=== PATIENT | male | born 1975 ===

== ENCOUNTER 2017-10-21 06:45 | Day surgery (SDC) | payer OTHER ==
[2017-10-21] VITALS (10 sets, daily range): BP systolic 79–152; BP diastolic 36–100
[~2017-10-21] VITALS: Ht 180.3 cm; Wt 112.0 kg
[~2017-10-21 06:45] MED LIST: ceFAZolin 1gm in D5W 55ml IVP ONE; celeBREX 100mg Cap **SURGERY PATIENTS ONLY ORAL ONE; oxyCONTIN 20mg tab ORAL ONE
[2017-10-21] MEDS ORDERED: Kenalog-40 1ml Vial ONE (07:14)
[2017-10-21] MEDS ORDERED: Morphine Sulfate PF 10 ML ONE (07:14)
[2017-10-21] MEDS ORDERED: EPINEPHrine 1mg/1ml Amp ONE (07:14)
[2017-10-21] MEDS ORDERED: Bupivacaine 0.25% Inj 30ml INJ ONE (07:15)
[2017-10-21] MEDS ORDERED: Lidocaine 1% 10mg/ml/Epi 0.005mg/ml 30ml vial INJ ONE (07:15)
[2017-10-21] MEDS ORDERED: Ketorolac 30mg Inj ONE (07:15)
[2017-10-21] MEDS ORDERED: LISINOPRIL40 MG ORAL (07:19)
[2017-10-21] MEDS ORDERED: GLYXAMBI 10 MG1 EACH PO (07:19)
[2017-10-21] MEDS ORDERED: LR 1000ml ONE (07:30)
[2017-10-21] MEDS ORDERED: NS Irrig 2000ml IRRIG ONE (07:30)
--- NOTE | 2017-10-21 07:41 | Pre-Procedure Note/Attestation ---
Pre-Procedure Note/Attestation Complete Prior to Procedure Planned Procedure: left Procedure Narrative: knee arthroscopy medial and lateral menisectomy Indications for Procedure Pre-Operative Diagnosis: left knee medial and lateral meniscus tear Attestation I attest that I discussed the nature of the procedure; its benefits; risks and complications; and alternatives (and the risks and benefits of such alternatives ), prior to the procedure, with the patient (or the patient's legal claims customer service representative). I attest that, if there was a reasonable possibility of needing a blood transfusion, the patient (or the patient's legal claims customer service representative) was given the [facility] standardized written summary, pursuant to the Antonio Natasha Blood Safety Act ([place] Health and Safety Code # 1645, as amended). I attest that I re-evaluated the patient just prior to the surgery and that there has been no change in the patient's H&P, except as documented below: Josue Washington MD October 21, 2017 07:41
--- NOTE | 2017-10-21 07:42 | Operative Note - PDOC ---
Operative Note Operative Note Pre-op Diagnosis: left knee medial and lateral meniscus tear Procedure: left knee arthroscopy, medial and lateral menisectomy Post-op Diagnosis: same as pre-op plus Operative Findings: consistent w/pre-op dx studies Anesthesia: general Specimen: none Complications: none Condition: stable Estimated Blood Loss: none Implant(s) used?: No Josue Washington MD October 21, 2017 07:42
[2017-10-21] MEDS ORDERED: D5 1/2NS 1,000 ML IV SCH ×3 (07:45→16:01)
[2017-10-21] MEDS ORDERED: Tylenol #3 tab (300mg/30mg) ORAL PRN ×3 (07:45→16:01)
[2017-10-21] MEDS ORDERED: Norco 5mg/325mg tab ORAL PRN ×3 (07:45→16:01)
[2017-10-21] MEDS ORDERED: Duramorph PF 10mg/10ml amp IV ONE (07:48)
--- NOTE | 2017-10-21 08:07 | Anethesia Preoperative Eval ---
Anesthesia Pre-op PMH/ROS General Date of Evaluation: October 21, 2017 Time of Evaluation: 07:15 Anesthesiologist: Joe ASA Score: ASA 3 Mallampati Score Class I : Soft palate, uvula, fauces, pillars visible Class II: Soft palate, uvula, fauces visible Class III: Soft palate, base of uvula visible Class IV: Only hard plate visible Mallampati Classification: Class III Surgeon: Felix Diagnosis: L knee pain Surgical Procedure: L knee scope Anesthesia History: none Allergies: Coded Allergies: No Known Allergies (Unverified , 10/21/17) Medications: see eMAR Past Medical History Cardiovascular: Reports: HTN; Denies: CAD, VA, valve dz, arrhythmia, other Pulmonary: Reports: HAILEY; Denies: asthma, COPD, other Gastrointestinal/Genitourinary: Reports: GERD; Denies: CRI, ESRD, other Neurologic/Psychiatric: Denies: dementia, CVA, depression/anxiety, TIA, other Endocrine: Reports: DM; Denies: hypothyroidism, steroids, other HEENT: Denies: cataract (L), cataract (R), glaucoma, RED DEVIL (L), RED DEVIL (R), other Hematology/Immune: Denies: anemia, DVT, bleeding disorder, other Musculoskeletal/Integumentary: Denies: OA, RA, DJD, DDD, edema, other Other: obesity PMH Narrative: as above PSxH Narrative: none Anesthesia Pre-op Phys. Exam Physician Exam Last Vital Signs Date Time Temp Pulse Resp B/P (MAP) Pulse Ox O2 Delivery O2 Flow Rate FiO2 10/21/17 07:28 98.2 99 20 152/100 99 Room Air 98.2 Constitutional: NAD Neurologic: CN 2-12 intact Cardiovascular: RRR, no M/R/G Respiratory: CTA Gastrointestinal: other - obesity Airway Exam Mallampati Score: Class III MO: full Neck: short ROM: full Teeth: intact Dentures: no upper, no lower Anesthesia Pre-op A/P Labs see chart Accucheck 212 at admission Studies Pre-op Studies: EKG - SR Risk Assessment & Plan Assessment: ASA 3 Plan: GA with LMA Status Change Before Surgery: No Pre-Antibiotics Drug: Ancef 2gr. Given Within 1 Hr of Incision: Yes Time Given: 07:56 Sarbjit Diaz MD October 21, 2017 08:07
[2017-10-21] MEDS ORDERED: LR 1000ml 1,000 ML IVLG SCH (08:08)
[2017-10-21] MEDS ORDERED: Meperidine 50mg/ml Inj(FOR RIGORS ONLY) IV PRN (08:15)
[2017-10-21] MEDS ORDERED: DiphenhydrAMINE 50mg/ml Inj IVP PRN (08:15)
[2017-10-21] MEDS ORDERED: fentaNYL 100 mcg/2 mL IV PRN (08:15)
[2017-10-21] MEDS ORDERED: Ketorolac 30mg Inj IV PRN (08:15)
--- NOTE | 2017-10-21 08:40 | Immediate Post-Op Evaluation ---
Immediate Post-Op Evalulation Immediate Post-Op Evalulation Procedure: L knee arthroscopy meniscectomy Date of Evaluation: October 21, 2017 Time of Evaluation: 08:39 IV Fluids: 1200 Blood Products: none Estimated Blood Loss: min Urinary Output: none Blood Pressure Systolic: 116 Blood Pressure Diastolic: 72 Pulse Rate: 87 Respiratory Rate: 22 O2 Sat by Pulse Oximetry: 99 Temperature (Fahrenheit): 97.7 Pain Score (1-10): 2 Nausea: No Vomiting: No Complications none Patient Status: reacts, patent, none Hydration Status: adequate Sarbjit Diaz MD October 21, 2017 08:40
--- NOTE | 2017-10-21 11:28 | 48 Hour Post Anesthesia Eval ---
Post Anesthesia Evaluation Procedure: L knee arthroscopy meniscectomy Date of Evaluation: October 21, 2017 Time of Evaluation: 11:27 Blood Pressure Systolic: 126 0: 72 Pulse Rate: 68 Respiratory Rate: 20 Temperature (Fahrenheit): 97.6 O2 Sat by Pulse Oximetry: 98 Airway: patent Nausea: No Vomiting: No Pain Intensity: 2 Hydration Status: adequate Cardiopulmonary Status: stable Follow-up Care/Observations: n/a Post-Anesthesia Complications: none Sarbjit Diaz MD October 21, 2017 11:28
--- NOTE | 2017-10-21 12:33 | Operative Note - Dictated ---
DATE OF OPERATION: 10/21/2017 PREOPERATIVE DIAGNOSIS: Left knee medial and lateral meniscus tear. POSTOPERATIVE DIAGNOSES: 1. Left knee medial meniscus tear. 2. Left Knee lateral meniscus tear. 3. Hypertrophic synovial tissue medial and lateral patellofemoral compartment. 4. Left lateral compartment chondral damage. PROCEDURES: 1. Left knee diagnostic arthroscopy and medial and lateral partial meniscectomy. 2. Synovectomy of lateral patellofemoral compartment. 3. Left knee lateral compartment chondroplasty. SURGEON: Josue Washington M.D. ANESTHESIA: General. INDICATION FOR PROCEDURE: The patient is a pleasant gentleman who has had progressive left knee pain. The patient had an MRI, which showed traumatic tears of the medial and lateral meniscus. The patient failed conservative treatment and elected to undergo left knee diagnostic arthroscopy, partial medial and lateral meniscectomy. Risks, limitations, expectations, complications of procedure were discussed in detail, continued pain, need for further surgery, risk of anesthesia, and medical complications. All questions were addressed. DESCRIPTION OF PROCEDURE: After informed consent was obtained, the patient was brought to the operating room and placed the patient in supine under monitored anesthesia control. Tourniquet was applied to the left proximal thigh. Left leg was prepped and draped in a sterile manner. Time-out was performed. A 0.25% Marcaine plain was injected into the left knee. Port site was injected with 1% lidocaine with epinephrine. Esmarch was used to exsanguinate the extremity. Inferolateral stab incision was then made. Trocar was introduced into knee joint and diagnostic arthroscopy was performed. There is a hypertrophic synovial tissue in the patellofemoral compartment. There is some chondral damage in the patellofemoral compartment and hypertrophic synovial tissue medial, intercondylar notch, and lateral compartment. Medial compartment was entered. Medial working portal was established. There was a tear of the medial meniscus. Partial meniscectomy using a shaver was performed. Once that was done, the synovectomy in the anterior compartment was extended into the intercondylar notch and lateral compartment. The ligamentum mucosa with synovial tissue debrided to better visualize the ACL. The ACL was intact. Medial compartment was entered through the medial viewing portal. A straight shaver was then placed in the lateral compartment and a partial lateral meniscectomy was performed. There was an area of chondral damage at the posterior femoral condyle where a gentle chondroplasty was performed. Once that was done, the camera was placed in the lateral viewing portal and a synovectomy of retropatellar fat pad was completed. Once that was done, the instruments removed. Portal sites were closed using 3-0 Monocryl sutures. Steri-Strips and a sterile dressing were applied. The patient was awoken and taken to recovery room with stable vital signs. ESTIMATED BLOOD LOSS: None. COMPLICATIONS: None. SPECIMENS: None. IMPLANTS: None. Josue Washington M.D. DR: VIRGEN JOB#: [id number] CC: TIMOTEO
== END 2017-10-21 10:15 | disposition home or self-care (01) ==
LOC: SUR 06:45 → MERGE 06:45 → SUR 10:15
DX: S83.282A Other tear of lateral meniscus, current injury, left knee, initial encounter (principal); S83.242A Other tear of medial meniscus, current injury, left knee, initial encounter; M24.10 Other articular cartilage disorders, unspecified site; M67.262 Synovial hypertrophy, not elsewhere classified, left lower leg; I10 Essential (primary) hypertension; K21.9 Gastro-esophageal reflux disease without esophagitis; G47.33 Obstructive sleep apnea (adult) (pediatric); E11.9 Type 2 diabetes mellitus without complications; E66.9 Obesity, unspecified; Z68.34 Body mass index [BMI] 34.0-34.9, adult
CPT/HCPCS: 29876; 29880; 82962; J0171; J1885; J2274; J3301; J3490; J7120; 94003; 94150